=== PATIENT | male | born 1970 ===

== ENCOUNTER 2024-09-18 15:41 | Outpatient (AMB) | payer OTHER, SELFPAY ==
--- NOTE | 2024-09-18 15:42 | MHC.PC.OV ---
Vital Signs 09/18/24 15:43 09/18/24 16:36 Height 5 ft 7 in Weight 228 lb BMI 35.7 BP 152/78 H 148/84 H Blood Pressure Location Lt brachial Rt brachial Position Sitting Sitting Pulse 115 H Pulse Source Pulse Oximeter Pulse Oximetry (%) 96 Oxygen Delivery Method Room Air Intake Visit Reasons: shoulder pain when laying down Intake Note: Pt stated he cut his thumb open on metal at work today. He said it does not need stitches and he has cream&bandages at home to take care of it. 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 Accompanied by: Self / Same As Patient Allergies No Known Allergies Allergy (Verified 09/18/24 16:07) Medication List - Last Reconciled 09/18/24 by Salome Rivas PA-C metformin 500 mg PO BID sitagliptin phosphate (Januvia) 100 mg PO DAILY Tobacco use date assessed: 09/18/24 Dental Screening Dental Screen Date: 09/18/24 Did you have a dental visit in the last 12 months?: Yes Did you have a dental problem in the last 6 months where you did not have access to dental care?: No Was dental information given to patient?: Patient has dentist HPI shoulder pain when laying down HPI Details 54-year-old male coming to the office for the 1st time. Previously seen by PCP at [facility] and seen earlier this year. He has been off of his medications for the last 2 months. He does have a history of colonoscopy with the last 2 years was told he was cleared for 10 years. Per his report he has a history of liver disease and upper GI bleed. He does have an acute concerns today which is bilateral shoulder pain has been going on for several months. He does mentioned he does have a lot of repetitive work and sometimes involves heavy lifting. He evaluated for this concern and had an x-ray which he reports is normal. [facility] Surgical History History of appendectomy Family History Mother Pancreatic cancer Social History Housing: House Patient Tobacco Use Status: Never used Tobacco Tobacco use type: Cigarette e-Cigarette/Vaping Use: Never Used Second Hand Smoke Exposure: No service: No Current occupational status: employed Current occupational exposures/hazards: Yes Cognitive needs: No Hearing needs: No Vision needs: Yes Questionnaire PHQ-9 Over the last 2 weeks, how often have you been bothered by any of the following problems? 1. Little interest or pleasure in doing things: not at all 2. Feeling down, depressed, or hopeless: not at all 3. Trouble falling or staying asleep, or sleeping too much: not at all 4. Feeling tired or having little energy: not at all 5. Poor appetite or overeating: not at all 6. Feeling bad about yourself - or that you are a failure or have let yourself or your family down: not at all 7. Trouble concentrating on things, such as reading the newspaper or watching television: not at all 8. Moving or speaking so slowly that other people could have noticed. Or the opposite - being so fidgety or restless that you have been moving around a lot more than usual: not at all 9. Thoughts that you would be better off or of hurting yourself in some way: not at all Total score: 0 Depression Screening Interpretation: Negative Depression Screening Done: Yes 43795 - PHQ-9 Billing: Yes Source: Developed by Drs. Bryan Blanchard, Debby Canada, Víctor Mancini and colleagues, with an educational elizabeth from [employer]. Thrive Questionnaire Date Thrive assessed: 09/18/24 I am a: Patient What is your living situation today?: I have a steady place to live Within the past 12 months, did the food you bought not last and you didn't have the money to get more?: Never true Within the past 12 months, did you worry whether your food would run out before you got money to buy more?: Never true Do you have trouble paying for medicines?: No Do you have trouble getting transportation to medical appointments?: No Do you have trouble paying your heating and electricity bill?: No Do you have trouble taking care of your child, family member or friend?: No Do you have trouble with day-to-day activities such as bathing, preparing meals, shopping, managing finances, etc.?: No Are you currently unemployed and looking for a job?: No Are you interested in more education?: No Please select the resources that you would like help with: None Currently or been in a relationship where the following occur: No concerns reported THRIVE Score: 0 AUDIT C Alcohol Use Questionnaire (AUDIT-C) 1. How often do you have a drink containing alcohol?: Monthly or less 2. How many drinks containing alcohol do you have on a typical day when you are drinking?: 1 or 2 3. How often do you have six or more drinks on one occasion?: Never Total Score: 1 OSWALDO-7 AMB Questionnaire OSWALDO-7 Date OSWALDO - 7 assessed: 09/18/24 Feeling nervous, anxious, or on edge: 0 = Not at all Not being able to stop or control worryin = Not at all Worrying too much about different things: 0 = Not at all Trouble relaxin = Not at all Being so restless that it is hard to sit still: 0 = Not at all Becoming easily annoyed or irritable: 0 = Not at all Feeling afraid as if something awful might happen: 0 = Not at all Total OSWALDO-7 score (0-4 normal; 5-9 mild; 10-14 moderate; 15-21 severe): 0 Source: Developed by Drs. Bryan Blanchard, Debby Canada, Víctor Mancini and colleagues, with an educational elizabeth from [employer]. OSWALDO-7 Assessment Billing OSWALDO-7 Assessment Tool: OSWALDO-7 Assessment 64148 Review of Systems Const Denies body aches, Denies chills and Denies fever(s) Eyes Reports no additional complaints ENT Reports no additional complaints Card Denies chest pain, Denies syncope, Denies leg edema, Denies dyspnea and Denies dyspnea on exertion Resp Denies dyspnea and Denies dyspnea on exertion GI Denies abdominal pain, Denies nausea and Denies vomiting Musc Details: bilateral shoulder pain and limited ROM Skin/Breast Reports system reviewed and no additional complaints, except as documented Neuro Details: No numbness or tingling of bilateral upper extremities Reports no additional complaints and Denies syncope Physical exam (Primary Care) Vital Signs: Last Vital Signs Pulse 115 H 09/18/24 15:43 BP 148/84 H 09/18/24 16:36 Pulse Ox 96 09/18/24 15:43 Oxygen Delivery Method Room Air 09/18/24 15:43 BMI result Body Mass Index 35.7 BMI Assessment/Plan discussion: High BMI High, discussed plan: lifestyle, dietary and physical activity Tobacco/Smoking Status: Tobacco use Status Tobacco use date assessed 09/18/24 09/18/24 15:51 Patient Tobacco Use Status Never used Tobacco 09/18/24 15:51 Tobacco use type Cigarette 09/18/24 15:51 e-Cigarette/Vaping Use Never Used 09/18/24 15:51 PHQ-9: PHQ-9 Score PHQ-9: Total score 0 09/18/24 16:06 Depression Screening Interpretation: Negative Thrive Assessment: Date of Thrive Assessment Date Thrive assessed 09/18/24 09/18/24 15:51 Currently or been in a relationship where the following occur: No concerns reported Const General: cooperative, healthy appearing, comfortable and no acute distress Orientation/consciousness: patient oriented x3 HENMT Head: Yes normocephalic Ears: hearing grossly normal bilaterally General nose exam: Normal external nose present Eyes General: appearance normal, both eyes and all related structures Conjunctivae: conjunctivae normal Neck Neck: Yes full ROM and Yes no lymphadenopathy Resp Effort & Inspection: normal respiratory effort Auscultation: clear to auscultation bilaterally, no crackles, no rales, no rhonchi and no wheezes Cardio Rate: regular rate Rhythm: regular rhythm Skin General skin exam: no rashes or lesions noted Neuro General: patient oriented x3 Gait exam (Neuro): Normal gait present Extrem Other: No pain to palpation over bilateral shoulders or clavicle. No redness, swelling, warmth. Pain with internal rotation and limited range of motion with full extension of bilateral shoulders General: Yes normal to inspection, Yes full ROM and No edema Psych Affect: normal affect Attitude: cooperative Insight: Good insight present (Psych) Judgement: Good judgement present (Psych) Coding Level of Care Code New Pt Level 4 (96735) Diagnoses Diabetes mellitus E11.9 Shoulder pain M25.519 Elevated blood pressure reading without diagnosis of hypertension R03.0 Additional Codes OSWALDO-7 Assessment Billing - OSWALDO-7 Assessment Tool: OSWALDO-7 Assessment 39341 ([id number]) PHQ-9 - 02330 - PHQ-9 Billing: Yes ([id number]) Assessment & Plan Assessment & Plan (1) Diabetes mellitus: Code(s): E11.9 - Type 2 diabetes mellitus without complications Category: Medical Plan: Decrease the amount of carbohydrates such as pasta, bread, rice, and potatoes and limit the amount of sweets. Although fruits are generally healthy they should be eaten in moderation as they are still high in sugar. Hemoglobin A1c goal of less than 7%. Ordered for updated blood work and refilled Metformin. (2) Shoulder pain: Code(s): M25.519 - Pain in unspecified shoulder Category: Medical Plan: Patient having bilateral shoulder pain and limited range of motion. No pain to palpation on exam. Advised patient to undergo physical therapy and can consider orthopedics referral if pain worsens or does not improve. We will request the x-ray results from last primary care. (3) Elevated blood pressure reading without diagnosis of hypertension: Code(s): R03.0 - Elevated blood-pressure reading, without diagnosis of hypertension Category: Medical Plan: Not currently on blood pressure management and no history of hypertension diagnosed in the past. Avoid salt intake and encourage healthy diet and regular exercise. Advised patient to take blood pressure at home 2-3 times per week and follow up at next appointment. Plan This note was constructed using voice recognition software. While every effort has been made to ensure accuracy and scallop binder, still areas may have been included sometimes these areas may affect the content or meeting of the given symptoms. Total time spent caring for the patient today was 30 minutes. This includes time spent before the visit reviewing the chart, time spent during the visit, and time spent after the visit and documentation. Orders: Orders TSH reflex Free T4 09/18/24 Z00.00 - Encounter for general adult medical examination without abnormal findings PSA, Ultra Sensitive 09/18/24 Z. - Encounter for general adult medical examination without abnormal findings PT Evaluation and Treatment 09/18/24 M25.519 - Pain in unspecified shoulder Complete Blood Count Auto Diff 09/18/2400. - Encounter for general adult medical examination without abnormal findings Comprehensive Met. Panel 09/18/24. - Encounter for general adult medical examination without abnormal findings Free T4 (Free Thyroxine) 09/18/24 Z.00 - Encounter for general adult medical examination without abnormal findings Vitamin B12 and Folate 09/18/24 Z. - Encounter for general adult medical examination without abnormal findings Vitamin D 25-OH (D2 and D3) 09/18/24 Z. - Encounter for general adult medical examination without abnormal findings Microalbumin, Random (w Creat) 09/18/24 E11.9 - Type 2 diabetes mellitus without complications Hemoglobin A1c 09/18/24 E11.9 - Type 2 diabetes mellitus without complications Lipid Panel 09/18/24 Z00.00 - Encounter for general adult medical examination without abnormal findings UA CC w/rflx Micro + Cult 09/18/24 E11.9 - Type 2 diabetes mellitus without complications, R35.89 - Other polyuria Medications: New metformin 500 mg PO BID 60 tabs 2RF
[2024-09-18 15:43] VITALS: BP 152/78; PULSE 115; O2SAT 96; BMI 35.7
[2024-09-18 16:36] VITALS: BP 148/84
== END 2024-09-18 16:46 | disposition home or self-care (01) ==
DX: E11.9 Type 2 diabetes mellitus without complications (principal); M25.519 Pain in unspecified shoulder; R03.0 Elevated blood-pressure reading, without diagnosis of hypertension

== ENCOUNTER → 2024-09-18 15:41 | Outpatient (BNVA) | payer OTHER, SELFPAY | DX: M25.511 Pain in right shoulder (principal); M25.512 Pain in left shoulder; E11.9 Type 2 diabetes mellitus without complications; R03.0 Elevated blood-pressure reading, without diagnosis of hypertension | CPT/HCPCS: 96127 ==

== ENCOUNTER 2024-11-16 15:41 | Outpatient (RCR) | payer OTHER, SELFPAY ==
--- NOTE | 2025-01-17 09:47 | MHC.PT.DC ---
[facility] [place] Office [place] Office [place] Office [address] Artemio Elias [address] [phone] F: [phone] F: [phone] F: [phone] F: [phone] Physical Therapy Discharge Report Diagnosis: Pain in unspecified shoulder Shoulder pain, darren shoulder pain and stiffness Date of Surgery: n/a Date of Evaluation: 11/16/24 Date of Discharge: 01/17/25 Treatments to Date: 1 Cancellations to Date: 5 No Shows to Date: Discharge Status: Patient Elected to Stop Discharge Summary: Pt attended initial PT evaluation on 11/16/24. He cancelled all of his PT appointments due to being sick. He is being D/C from skilled PT as he has not attended or called to reschedule in > 30 days. Pt current level of function unknown at this time Electronically signed by: Allyson Franco, PT, DPT Please sign and return to therapist. Thank you for your referral.
== END 2025-01-17 09:46 | disposition home or self-care (01) ==
LOC: HO.PT 15:41
DX: M25.511 Pain in right shoulder (principal); M25.512 Pain in left shoulder
CPT/HCPCS: 97161

== ENCOUNTER 2024-11-20 15:29 | Outpatient (AMB) | payer OTHER, SELFPAY ==
--- NOTE | 2024-11-20 15:34 | A.OFFPC_ITS ---
Vital Signs 11/20/24 15:35 11/20/24 16:29 Height 5 ft 7 in Weight 234 lb BMI 36.6 BP 140/80 H 130/80 Blood Pressure Location Lt brachial Lt brachial Position Sitting Sitting Pulse 107 H Pulse Source Pulse Oximeter Pulse Oximetry (%) 97 Oxygen Delivery Method Room Air Intake Visit Reasons: Annual Exam Intake Note: Patient is here today for a physical. Appraisal Manager Required: No Toe Sewer: Not Required per policy Accompanied by: Self / Same As Patient Allergies No Known Allergies Allergy (Verified 11/20/24 15:35) Medication List - Last Reconciled 11/20/24 by Salome Rivas PA-C metformin 500 mg PO BID sitagliptin phosphate (Januvia) 100 mg PO DAILY Tobacco use date assessed: 11/20/24 Dental Screening Dental Screen Date: 11/20/24 Did you have a dental visit in the last 12 months?: Yes Did you have a dental problem in the last 6 months where you did not have access to dental care?: No Was dental information given to patient?: Patient has dentist HPI Annual Exam HPI Details 54-year-old male with past medical histo ry of diabetes mellitus and elevated blood pressure last seen 08/2024 coming in for annual exam. Patient tells us today he has been taking his medications but has been eating poorly at home. He has been eating foods high in sugars and carbs. He did see PT for his shoulder pain but was only able to attend one visit prior to this appointment due to limited appointment availability. He states he is up to date on his colonoscopy but we are still awaiting records from his last PCP. He had his tetanus vaccine last year after a laceration to the finger. Declining flu shot today. [facility] Surgical History History of appendectomy Family History Mother Pancreatic cancer Social History Housing: House Alcohol intake: never Patient Tobacco Use Status: Never used Tobacco Tobacco use type: Cigarette e-Cigarette/Vaping Use: Never Used Second Hand Smoke Exposure: No service: No Current occupational status: employed Current occupational exposures/hazards: Yes Cognitive needs: No Hearing needs: No Vision needs: Yes (Glasses) Questionnaire PHQ-9 Over the last 2 weeks, how often have you been bothered by any of the following problems? 1. Little interest or pleasure in doing things: not at all 2. Feeling down, depressed, or hopeless: not at all 3. Trouble falling or staying asleep, or sleeping too much: not at all 4. Feeling tired or having little energy: not at all 5. Poor appetite or overeating: not at all 6. Feeling bad about yourself - or that you are a failure or have let yourself or your family down: not at all 7. Trouble concentrating on things, such as reading the newspaper or watching television: not at all 8. Moving or speaking so slowly that other people could have noticed. Or the opposite - being so fidgety or restless that you have been moving around a lot more than usual: not at all 9. Thoughts that you would be better off or of hurting yourself in some way: not at all Total score: 0 Depression Screening Interpretation: Negative Depression Screening Done: Yes Source: Developed by Drs. Bryan Blanchard, Debby Canada, Víctor Mancini and colleagues, with an educational elizabeth from [employer]. Thrive Questionnaire Date Thrive assessed: 11/20/24 I am a: Patient What is your living situation today?: I have a steady place to live Within the past 12 months, did the food you bought not last and you didn't have the money to get more?: Never true Within the past 12 months, did you worry whether your food would run out before you got money to buy more?: Never true Do you have trouble paying for medicines?: No Do you have trouble getting transportation to medical appointments?: No Do you have trouble paying your heating and electricity bill?: No Do you have trouble taking care of your child, family member or friend?: No Do you have trouble with day-to-day activities such as bathing, preparing meals, shopping, managing finances, etc.?: No Are you currently unemployed and looking for a job?: No Are you interested in more education?: No Please select the resources that you would like help with: None Currently or been in a relationship where the following occur: No concerns reported THRIVE Score: 0 AUDIT C Alcohol Use Questionnaire (AUDIT-C) 1. How often do you have a drink containing alcohol?: Never Total Score: 0 OSWALDO-7 AMB Questionnaire OSWALDO-7 Date OSWALDO - 7 assessed: 11/20/24 Feeling nervous, anxious, or on edge: 0 = Not at all Not being able to stop or control worryin = Not at all Worrying too much about different things: 0 = Not at all Trouble relaxin = Not at all Being so restless that it is hard to sit still: 0 = Not at all Becoming easily annoyed or irritable: 0 = Not at all Feeling afraid as if something awful might happen: 0 = Not at all Total OSWALDO-7 score (0-4 normal; 5-9 mild; 10-14 moderate; 15-21 severe): 0 Source: Developed by Drs. Bryan Blanchard, Debby Canada, Víctor Mancini and colleagues, with an educational elizabeth from [employer]. Review of Systems Const Denies body aches, Denies fatigue, Denies fever(s), Denies frequent falls, Denies headache(s) and Denies weakness Eyes Reports no additional complaints and Denies change in vision ENT Denies dysphagia, Denies dizziness, Denies facial pain, Denies headache(s), Denies nasal congestion and Denies odynophagia Card Denies chest pain, Denies syncope, Denies irregular heart rhythm, Denies leg edema, Denies lightheadedness and Denies dyspnea Resp Denies cough and Denies dyspnea GI Denies constipation, Denies dysphagia, Denies dyspepsia, Denies diarrhea, Denies nausea, Denies odynophagia and Denies vomiting Denies dysuria, Denies urinary frequency, Denies urinary hesitancy and Denies urinary urgency Musc Denies back pain and Denies myalgias Skin/Breast Reports system reviewed and no additional complaints, except as documented Neuro Denies dizziness, Denies syncope, Denies frequent falls, Denies headache(s) and Denies weakness Psych Reports no additional complaints Endo Denies fatigue Physical exam (Primary Care) Vital Signs: Last Vital Signs Pulse 107 H 11/20/24 15:35 BP 130/80 11/20/24 16:29 Pulse Ox 97 11/20/24 15:35 Oxygen Delivery Method Room Air 11/20/24 15:35 BMI result Body Mass Index 36.6 Tobacco/Smoking Status: Tobacco use Status Tobacco use date assessed 11/20/24 11/20/24 15:46 Patient Tobacco Use Status Never used Tobacco 11/20/24 15:46 Tobacco use type Cigarette 11/20/24 15:46 e-Cigarette/Vaping Use Never Used 11/20/24 15:46 PHQ-9: PHQ-9 Score PHQ-9: Total score 0 11/20/24 15:56 Depression Screening Interpretation: Negative Thrive Assessment: Date of Thrive Assessment Date Thrive assessed 11/20/24 11/20/24 15:46 Currently or been in a relationship where the following occur: No concerns reported Const General: cooperative, healthy appearing, comfortable and no acute distress Orientation/consciousness: patient oriented x3 HENMT Head: Yes normocephalic Ears: hearing grossly normal bilaterally, external ears normal, TM's normal bilaterally and EAC's normal General nose exam: Normal external nose present Face and sinus: Yes normal facial exam and Yes sinuses nontender Mouth: Normal oral and palatal mucosa present and tongue normal Throat: Yes posterior oropharynx normal Eyes General: appearance normal, both eyes and all related structures Conjunctivae: conjunctivae normal Pupils: Equal, round and reactive pupils present EOM: EOMs intact bilaterally and No Nystagmus present Neck Neck: Yes normal visual inspection, Yes full ROM and Yes no lymphadenopathy Chest Chest palpation & inspection: normal inspection of the chest Resp Effort & Inspection: normal respiratory effort Auscultation: clear to auscultation bilaterally, no crackles, no rales, no rhonchi, no wheezes and breath sounds present Cardio Rate: regular rate Rhythm: regular rhythm Peripheral pulses: radial pulses present and dorsalis pedis present GI Inspection: Yes normal to inspection and No Abdominal wall edema Palpation (GI): Soft to palpation, not firm and nontender Auscultation: normal bowel sounds Rectal Exam - Male: Yes deferred General: Yes no CVA tenderness Back/Spine/Pelvis Back: no CVA tenderness Skin General skin exam: no rashes or lesions noted Neuro General: patient oriented x3 Cranial nerves: Yes Equal, round and reactive pupils present, Yes Midline tongue present, Yes Ability to bilaterally elevate shoulders present and No Nystagmus present Gait exam (Neuro): Normal gait present Extrem General: Yes normal to inspection, Yes full ROM, No no pedal edema and No edema Psych Speech and movement: Normal speech and movement present Affect: normal affect Insight: Good insight present (Psych) Judgement: Good judgement present (Psych) Results AMB Hemoglobin A1c AMB Hemoglobin A1c 10.4 % Last Edit by DARIA Calderon on 11/20/24 15:5 0 Results Reviewed Results Reviewed: Laboratory Last Values Hgb A1c (Clinic) 10.4 % (4.0-6.0) H 11/20/24 15:34 Coding Level of Care Code Est Pt Prev Care 40-64y(67445) Diagnoses Tachycardia R00.0 Elevated blood pressure reading without diagnosis of hypertension R03.0 Shoulder pain M25.519 Diabetes mellitus E11.9 Obesity (BMI 30-39.9) E66.9 Annual physical exam Z00.00 Assessment & Plan Assessment & Plan (1) Tachycardia: Code(s): R00.0 - Tachycardia, unspecified Category: Medical Plan: Patient tachycardic on exam denies any symptoms of chest pain, lightheadedness or dizziness. Ordered for EKG for further evaluation. (2) Elevated blood pressure reading without diagnosis of hypertension: Code(s): R03.0 - Elevated blood-pressure reading, without diagnosis of hypertension Category: Medical Plan: Blood pressure mildly elevated decreased when retaken 130/80. Avoid salt intake and encourage healthy diet and regular exercise. Advised patient to take blood pressure at home and blood pressure cuff sent to [facility]. (3) Shoulder pain: Code(s): M25.519 - Pain in unspecified shoulder Category: Medical Plan: Continue with physical therapy and can consider referral to orthopedics if no improvement. (4) Diabetes mellitus: Code(s): E11.9 - Type 2 diabetes mellitus without complications Category: Medical Plan: Decrease the amount of carbohydrates such as pasta, bread, rice, and potatoes and limit the amount of sweets. Although fruits are generally healthy they fani uld be eaten in moderation as they are still high in sugar. Hemoglobin A1c goal of of less than 7%. A1c elevated today 10.4%. Strongly advised against dietary and lifestyle modification. Patient declining insulin and GLP 1 injections although they are strongly recommended based on the elevated A1c. We will try adding Jardiance to medication regimen and follow up in 3 months. (5) Obesity (BMI 30-39.9): Code(s): E66.9 - Obesity, unspecified Category: Medical Plan: Healthy diet and regular exercise is encouraged. (6) Annual physical exam: Code(s): Z00.00 - Encounter for general adult medical examination without abnormal findings Category: Medical Plan: Patient is up-to-date on all recommended routine screenings and vaccinations for his age. Reminded patient about blood work as it has not been completed since last visit. Tetanus vaccine up to date and declining flu shot today. Waiting on records from last PCP. Plan This note was constructed using voice recognition software. While every effort has been made to ensure accuracy and residence life coordinator, still areas may have been included sometimes these areas may affect the content or meeting of the given symptoms. Total time spent caring for the patient today was 30 minutes. This i ncludes time spent before the visit reviewing the chart, time spent during the visit, and time spent after the visit and documentation. Orders: Orders ECG 12 lead EKG 11/20/24 R00.0 - Tachycardia, unspecified AMB Hemoglobin A1c 11/20/24 E11.9 - Type 2 diabetes mellitus without complications Medications: New sitagliptin phosphate (Januvia) 100 mg PO DAILY 90 tabs 3RF empagliflozin (Jardiance) 10 mg PO DAILY 90 tabs 0RF Refilled metformin 500 mg PO BID 180 tabs 2RF
[2024-11-20 15:35] VITALS: BP 140/80; PULSE 107; O2SAT 97; BMI 36.6
[2024-11-20 16:29] VITALS: BP 130/80
== END 2024-11-20 16:40 | disposition home or self-care (01) ==
DX: E11.9 Type 2 diabetes mellitus without complications (principal)

== ENCOUNTER → 2024-11-20 15:29 | Outpatient (BNVA) | payer OTHER, SELFPAY | DX: Z00.00 Encounter for general adult medical examination without abnormal findings (principal); R00.0 Tachycardia, unspecified; R03.0 Elevated blood-pressure reading, without diagnosis of hypertension; M25.519 Pain in unspecified shoulder; E11.9 Type 2 diabetes mellitus without complications; E66.9 Obesity, unspecified; Z68.36 Body mass index [BMI] 36.0-36.9, adult | CPT/HCPCS: 83036; 96127 ==

== ENCOUNTER 2025-02-19 15:44 | Outpatient (AMB) | payer OTHER, SELFPAY ==
--- NOTE | 2025-02-19 15:55 | A.OFFPC_ITS ---
Vital Signs 02/19/25 15:56 02/19/25 16:19 Height 5 ft 7 in Weight 222 lb 8 oz BMI 34.8 BP 142/84 H 128/72 Blood Pressure Location Lt brachial Lt brachial Position Sitting Sitting Pulse 111 H 100 Pulse Source Pulse Oximeter Temp 97.5 F Temp Source Temporal Artery Scan Pulse Oximetry (%) 94 Oxygen Delivery Method Room Air Intake Visit Reasons: f/u DM and HTN Intake Note: Patient is here to follow up on DM, HTN. Dependency Case Manager Required: No Facilities Maintenance Engineer: Not Required per policy Accompanied by: Self / Same As Patient Allergies No Known Allergies Allergy (Verified 02/19/25 16:03) Medication List - Last Reconciled 02/19/25 by Salome Rivas PA-C empagliflozin (Jardiance) 10 mg PO DAILY metformin 500 mg PO BID sitagliptin phosphate (Januvia) 100 mg PO DAILY Tobacco use date assessed: 02/19/25 Dental Screening Dental Screen Date: 11/20/24 HPI f/u DM and HTN HPI Details 54-year-old male with past medical histo ry of diabetes mellitus, elevated blood pressure, obesity and elevated LFTs last seen 11/2024 coming in for follow up. Presenting with work-related stress and depression. He is dissatisfied with his job, leading to significant stress, impacting sleep and mood. Reports interpersonal difficulties at home, primarily due to partner's snoring and disagreements about diet. Experienced a 12-pound weight loss, unintentional, over the winter months without formal exercise due to time constraints. His diabetes management has improved significantly from an A1c of 10.4 to 7.2, yet remains above the optimal level. Awaits investigation for sleep patterns, discontinuation of previous CPAP therapy post weight loss without reassessment of need. Reports fatigue and elevated heart rate primarily attributed to stress, lacking awareness of any potential underlying arrhythmia. PFSH Surgical History History of appendectomy Family History Mother Pancreatic cancer Social History Housing: House Alcohol intake: never Patient Tobacco Use Status: Never used Tobacco Tobacco use type: Cigarette e-Cigarette/Vaping Use: Never Used Second Hand Smoke Exposure: No service: No Current occupational status: employed Current occupational exposures/hazards: Yes Cognitive needs: No Hearing needs: No Vision needs: Yes (Glasses) Questionnaire Thrive Questionnaire Date Thrive assessed: 11/20/24 OSWALDO-7 AMB Questionnaire OSWALDO-7 Date OSWALDO - 7 assessed: 11/20/24 Source: Developed by Drs. Bryan Blanchard, Debby Canada, Víctor Mancini and colleagues, with an educational elizabeth from [employer]. Review of Systems Const Denies body aches, Denies chills, Denies fever(s), Denies headache(s) and Denies poor appetite Eyes Reports no additional complaints ENT Denies dysphagia, Denies dizziness, Denies headache(s) and Denies odynophagia Card Denies chest pain, Denies syncope, Denies edema, Denies irregular heart rhythm, Denies lightheadedness and Denies dyspnea Resp Denies cough and Denies dyspnea GI Denies abdominal pain, Denies constipation, Denies dysphagia, Denies diarrhea, Denies nausea, Denies odynophagia and Denies vomiting Reports no additional complaints Musc Reports no additional complaints and Denies abnormal gait Skin/Breast Reports system reviewed and no additional complaints, except as documented Neuro Denies abnormal gait, Denies dizziness, Denies syncope and Denies headache(s) Psych Reports no additional complaints Physical exam (Primary Care) Vital Signs: Last Vital Signs Temp 97.5 F 02/19/25 15:56 Pulse 111 H 02/19/25 15:56 BP 142/84 H 02/19/25 15:56 Pulse Ox 94 02/19/25 15:56 Oxygen Delivery Method Room Air 02/19/25 15:56 BMI result Body Mass Index 34.8 Tobacco/Smoking Status: Tobacco use Status Tobacco use date assessed 11/20/24 11/20/24 15:46 Patient Tobacco Use Status Never used Tobacco 11/20/24 15:46 Tobacco use type Cigarette 11/20/24 15:46 e-Cigarette/Vaping Use Never Used 11/20/24 15:46 Thrive Assessment: Date of Thrive Assessment Date Thrive assessed 11/20/24 11/20/24 15:46 Const General: cooperative, healthy appearing, comfortable and no acute distress Orientation/consciousness: patient oriented x3 HENMT Head: Yes normocephalic Ears: hearing grossly normal bilaterally General nose exam: Normal external nose present Eyes General: appearance normal, both eyes and all related structures Conjunctivae: conjunctivae normal Neck Neck: Yes full ROM and Yes no lymphadenopathy Resp Effort & Inspection: normal respiratory effort Auscultation: clear to auscultation bilaterally, no crackles, no rales, no rhonchi and no wheezes Cardio Rate: regular rate Rhythm: regular rhythm Skin General skin exam: no rashes or lesions noted Neuro General: patient oriented x3 Gait exam (Neuro): Normal gait present Extrem General: Yes normal to inspection, Yes full ROM and No edema Psych Affect: normal affect Attitude: cooperative Insight: Good insight present (Psych) Judgement: Good judgement present (Psych) Results AMB Hemoglobin A1c AMB Hemoglobin A1c 7.2 % Last Edit by DARIA Calderon on 02/19/25 16:09 Coding Level of Care Code Est Pt Level 4 (32928) Diagnoses Diabetes mellitus E11.9 Elevated blood pressure reading without diagnosis of hypertension R03.0 Tachycardia R00.0 Obesity (BMI 30-39.9) E66.9 Hypersomnolence G47.10 Stress disorder, acute F43.0 Assessment & Plan Assessment & Plan (1) Diabetes mellitus: Code(s): E11.9 - Type 2 diabetes mellitus without complications Category: Medical Plan: Decrease the amount of carbohydrates such as pasta, bread, rice, and potatoes and limit the amount of sweets. Although fruits are generally healthy they should be eaten in moderation as they are still high in sugar. Hemoglobin A1c goal of less than 7%. A1c 7.2% today continue on current medication regimen at this time and continue to work on diet and exercise. If A1c remains elevated plan to increase Jardiance to 25mg. (2) Elevated blood pressure reading without diagnosis of hypertension: Code(s): R03.0 - Elevated blood-pressure reading, without diagnosis of hypertension Category: Medical Plan: Avoid salt intake and encourage healthy diet and regular exercise. Blood pressure normal on exam today. (3) Tachycardia: Code(s): R00.0 - Tachycardia, unspecified Category: Medical Plan: Reminded patient about EKG agreed to have it done on Wednesday. Patient is currently asymptomatic at this time (4) Obesity (BMI 30-39.9): Code(s): E66.9 - Obesity, unspecified Category: Medical Plan: Healthy diet and regular exercise is encouraged. Noted 12 lb weight loss since last visit. (5) Hypersomnolence: Code(s): G47.10 - Hypersomnia, unspecified Category: Medical Plan: Patient has previous history of sleep apnea but has not been tested since he had significant weight loss. ORdered for home sleep study test for further evaluation. (6) Stress disorder, acute: Code(s): F43.0 - Acute stress reaction Category: Medical Plan: Patient endorsing high amounts of stress due to home and work life. Denies any thoughts of self-harm and agrees to reach out if this changes. Declines referral to counseling or medical management at this time. Plan Management of the patient's diabetes will continue with the current Jardiance dosage, and we will re-evaluate after three months. A diet plan to reduce carbohydrate intake with enhanced portion control was discussed to aid in glycemic control and the patient's weight loss goals. The patient continues to decline psychiatric interventions; however, the sleep study is set to evaluate obstructive sleep apnea. We will monitor the fast heart rate through an EKG, and address any abnormalities found. Recommended abdominal and kidney ultrasonography will further check liver functionality and exclude incidental findings. Stress management measures, including monitoring blood pressure and weight, are noted as preventive discussions. This note was constructed using voice recognition software. While every effort has been made to ensure accuracy and liquid sugar fortifier, still areas may have been included sometimes these areas may affect the content or meeting of the given symptoms. Total time spent caring for the patient today was 20 minutes. This includes time spent before the visit reviewing the chart, time spent during the visit, and time spent after the visit and documentation. Patient was informed and verbally consented to the use of an ambient scribe for clinic note documentation during this visit. Orders: Orders AMB Hemoglobin A1c Today E11.9 - Type 2 diabetes mellitus without complications RT home sleep study Today E66.9 - Obesity, unspecified, G47.10 - Hypersomnia, unspecified Medications: Refilled empagliflozin (Jardiance) 10 mg PO DAILY 90 tabs 2RF
[2025-02-19 15:56] VITALS: BP 142/84; PULSE 111; TEMP 36.4; O2SAT 94; BMI 34.8
[2025-02-19 16:19] VITALS: BP 128/72; PULSE 100
--- OUTSIDE RECORDS SUMMARY | 2025-02-19 18:06 | XMS_ITS ---
Author Name [facility] Organization Unknown Encounters Encounter Type Encounter Reason Primary Diagnosis Location Date Emergency RIGHT HAND LACERATION RIGHT HAND LACERATION [facility] 02/17/2024 Care Team Organization Name Specialty Phone Email Start Date End Da [facility] provided,No Primary Care 02/17/2024 06/11/2024 [facility] No provided Primary Care 02/17/2024 [facility] 02/17/2024
== END 2025-02-19 16:46 | disposition home or self-care (01) ==
LOC: HO.HMCH 15:44
DX: E11.9 Type 2 diabetes mellitus without complications (principal); R03.0 Elevated blood-pressure reading, without diagnosis of hypertension; Z68.34 Body mass index [BMI] 34.0-34.9, adult; E66.9 Obesity, unspecified; R00.0 Tachycardia, unspecified; G47.10 Hypersomnia, unspecified; F43.0 Acute stress reaction

== ENCOUNTER → 2025-02-19 15:44 | Outpatient (BNVA) | payer OTHER, SELFPAY | DX: E11.9 Type 2 diabetes mellitus without complications (principal); R03.0 Elevated blood-pressure reading, without diagnosis of hypertension; R00.0 Tachycardia, unspecified; E66.9 Obesity, unspecified; G47.10 Hypersomnia, unspecified; F43.0 Acute stress reaction | CPT/HCPCS: 83036 ==

== ENCOUNTER 2025-02-23 10:41 | Outpatient (REF) | payer OTHER, SELFPAY ==
[2025-02-23 11:40] LABS: Appearance Urine Clear; Color Urine Yellow; Glucose Urine UA >=1000 mg/dL (Negative); Leukocyte Esterase Urine Negative (Negative); Nitrite Urine Negative (Negative); PH 6.5 (5.0-9.0); Specific Gravity - Urine >= 1.030 (1.005-1.025); UMIC TRIGGER UACC YES; Urine Blood Small (1+) (Negative); Urine Ketones Negative (Negative); Urine Protein Negative (Neg-Trace)
[2025-02-23 11:43] LABS: Bacteria Urine None Seen (None Seen); Hyaline Casts Urine 0-2 /LPF (0-2); Squamous Epithelial Cell Urine 0-2 /HPF (0-2); WBC Urine 0-5 /HPF (0-5)
[2025-02-24 08:21] LABS: HBc Num1 0.07 S/CO (0.00-0.79); Hepatitis B Core Antibody Nonreactive (Nonreactive); Hepatitis B Surface Antigen Negative (Negative); ~HepC Num1 0.17 S/CO (0.00-0.79); ~Hepatitis B Surface Antibody NONREACTIVE (Nonreactive); ~Hepatitis C Antibody Nonreactive (Nonreactive)
== END 2025-02-23 10:42 | disposition home or self-care (01) ==
LOC: HO.LAB 10:41
DX: R79.89 Other specified abnormal findings of blood chemistry (principal)
CPT/HCPCS: 36415; 81001; 86704; 86706; 86803; 87340

== ENCOUNTER 2025-10-24 15:02 | Outpatient (AMB) | payer OTHER, SELFPAY ==
[2025-10-24 15:11] VITALS: BP 138/72; PULSE 102; RESP 18; O2SAT 95; BMI 36.1
--- NOTE | 2025-10-24 15:11 | A.OFFPC_ITS ---
Vital Signs 10/24/25 15:11 Height 5 ft 7 in Weight 230 lb 4 oz BMI 36.1 BP 138/72 Blood Pressure Location Lt brachial Position Sitting Respiration 18 Pulse 102 H Pulse Source Pulse Oximeter Temp Source Temporal Artery Scan Pulse Oximetry (%) 95 Oxygen Delivery Method Room Air Intake Visit Reasons: BMI check in [employer] Saw Operator Required: No Allergies No Known Allergies Allergy (Verified 10/24/25 15:35) Medication List - Last Reconciled 10/24/25 by Salome Rivas PA-C empagliflozin (Jardiance) 10 mg PO DAILY metformin 500 mg PO BID sitagliptin phosphate (Januvia) 100 mg PO DAILY Tobacco use date assessed: 10/24/25 Dental Screening Dental Screen Date: 10/24/25 Did you have a dental visit in the last 12 months?: No Did you have a dental problem in the last 6 months where you did not have access to dental care?: No Was dental information given to patient?: No HPI BMI check in HPI Details 55-year-old male with past medical histo ry of diabetes mellitus, elevated blood pressure, obesity and elevated LFTs last seen 02/2025 coming in for follow up. Presenting for chronic disease management. He reports significant stress related to his work, home life, and family, including challenges with his sons and partner. He has gained 10 pounds since his last visit, with his weight increasing from 220 to 230 pounds, which he attributes to stress and poor eating habits. Regarding his diabetes, his initial A1c was 10.4, which had improved previously, but he is concerned it has worsened. He has a diagnosis of mild cirrhosis and has missed a GI follow-up appointment. He reports he does not drink alcohol consistently, having a beer occasionally about once a month, and takes ibuprofen for aches and pains. He has a history of missed appointments, including a sleep study, though he feels he is sleeping fine. [facility] Surgical History History of appendectomy Family History Mother Pancreatic cancer Social History Housing: House Alcohol intake: never Patient Tobacco Use Status: Never used Tobacco Tobacco use type: Cigarette e-Cigarette/Vaping Use: Never Used Second Hand Smoke Exposure: No service: No Current occupational status: employed Current occupational exposures/hazards: Yes Cognitive needs: No Hearing needs: No Vision needs: Yes (Glasses) Questionnaire Thrive Questionnaire Date Thrive assessed: 10/24/25 What is your living situation today?: I have a steady place to live Within the past 12 months, did the food you bought not last and you didn't have the money to get more?: Never true Within the past 12 months, did you worry whether your food would run out before you got money to buy more?: Never true Do you have trouble paying for medicines?: No Do you have trouble getting transportation to medical appointments?: No Do you have trouble paying your heating and electricity bill?: No Do you have trouble taking care of your child, family member or friend?: No Do you have trouble with day-to-day activities such as bathing, preparing meals, shopping, managing finances, etc.?: No Are you currently unemployed and looking for a job?: No Are you interested in more education?: No Please select the resources that you would like help with: None Currently or been in a relationship where the following occur: No concerns reported THRIVE Score: 0 OSWALDO-7 AMB Questionnaire OSWALDO-7 Date OSWALDO - 7 assessed: 11/20/24 Source: Developed by Drs. Bryan Blanchard, Debby Canada, Víctor Mancini and colleagues, with an educational elizabeth from [employer]. Review of Systems Const Denies body aches, Denies chills, Denies fever(s), Denies headache(s) and Denies poor appetite Eyes Reports no additional complaints ENT Denies dizziness and Denies headache(s) Card Denies chest pain, Denies lightheadedness and Denies dyspnea Resp Denies dyspnea GI Denies abdominal pain, Denies nausea and Denies vomiting Reports no additional complaints Musc Reports no additional complaints and Denies abnormal gait Skin/Breast Reports system reviewed and no additional complaints, except as documented Neuro Denies abnormal gait, Denies dizziness and Denies headache(s) Psych Reports no additional complaints Physical exam (Primary Care) Vital Signs: Last Vital Signs Pulse 102 H 10/24/25 15:11 Resp 18 10/24/25 15:11 BP 138/72 10/24/25 15:11 Pulse Ox 95 10/24/25 15:11 Oxygen Delivery Method Room Air 10/24/25 15:11 BMI result Body Mass Index 36.1 Tobacco/Smoking Status: Tobacco use Status Tobacco use date assessed 10/24/25 10/24/25 15:17 Patient Tobacco Use Status Never used Tobacco 10/24/25 15:17 Tobacco use type Cigarette 10/24/25 15:17 e-Cigarette/Vaping Use Never Used 10/24/25 15:17 Thrive Assessment: Date of Thrive Assessment Date Thrive assessed 10/24/25 10/24/25 15:17 Currently or been in a relationship where the following occur: No concerns reported Forms completed: MOLST Time spent: 1-15 minutes, not on file Actual minutes spent: 15 Const General: cooperative, healthy appearing, comfortable and no acute distress Orientation/consciousness: patient oriented x3 HENMT Head: Yes normocephalic Ears: hearing grossly normal bilaterally General nose exam: Normal external nose present Eyes General: appearance normal, both eyes and all related structures Conjunctivae: conjunctivae normal Neck Neck: Yes full ROM and Yes no lymphadenopathy Resp Effort & Inspection: normal respiratory effort Auscultation: clear to auscultation bilaterally, no crackles, no rales, no rhonchi and no wheezes Cardio Rate: regular rate Rhythm: regular rhythm Skin General skin exam: no rashes or lesions noted Neuro General: patient oriented x3 Gait exam (Neuro): Normal gait present Extrem General: Yes normal to inspection, Yes full ROM and No edema Psych Affect: normal affect Attitude: cooperative Insight: Good insight present (Psych) Judgement: Good judgement present (Psych) Results AMB Hemoglobin A1c AMB Hemoglobin A1c 7.9 % Last Edit by Gladis Perez MA on 10/24/25 16:05 Results Reviewed Results Reviewed: Laboratory Last Values Hgb A1c (Clinic) 7.9 % (4.0-6.0) H 10/24/25 15:38 Coding Level of Care Code Est Pt Level 4 (57139) Diagnoses Diabetes mellitus E11.9 Elevated blood pressure reading without diagnosis of hypertension R03.0 Tachycardia R00.0 Obesity (BMI 30-39.9) E66.9 Hypersomnolence G47.10 Cirrhosis K74.60 Advanced directives, counseling/discussion Z71.89 Additional Codes Vital Signs *Quality* - Time spent: 1-15 minutes, not on file ([id number]) Assessment & Plan Assessment & Plan (1) Diabetes mellitus: Code(s): E11.9 - Type 2 diabetes mellitus without complications Category: Medical Plan: Decrease the amount of carbohydrates such as pasta, bread, rice, and potatoes and limit the amount of sweets. Although fruits are generally healthy they should be eaten in moderation as they are still high in sugar. Hemoglobin A1c goal of less than 7%. The patient's Hemoglobin A1c is elevated at 7.9, up from a previously well- controlled level. He is currently taking Januvia, Jardiance, and metformin. Given the elevated A1c and associated weight gain, a trial of Ozempic was discussed, which would necessitate discontinuing Januvia as they are in the same medication class. A prescription for Ozempic will be sent to the pharmacy to determine insurance coverage. If Ozempic is covered, the patient will stop Januvia and begin Ozempic. If it is not covered, he will continue his current medications, and the dose of Jardiance will be increased. (2) Elevated blood pressure reading without diagnosis of hypertension: Code(s): R03.0 - Elevated blood-pressure reading, without diagnosis of hypertension Category: Medical Plan: Avoid salt intake and encourage healthy diet and regular exercise. Blood pressure normal on exam today. (3) Tachycardia: Code(s): R00.0 - Tachycardia, unspecified Category: Medical Plan: Updated order for EKG to be completed by patient. (4) Obesity (BMI 30-39.9): Code(s): E66.9 - Obesity, unspecified Category: Medical Plan: Healthy diet and regular exercise is encouraged. Noted 8 lb weight gain since last visit. (5) Hypersomnolence: Code(s): G47.10 - Hypersomnia, unspecified Category: Medical Plan: Patient has previous history of sleep apnea but has not been tested since he had significant weight loss. Patient missed sleep study appointment advised to reschedule but patient declines today. (6) Cirrhosis: Comment: Liver elastography 02/2023 with stiffness value 19.1 consistent with cirrhotic morphology Code(s): K74.60 - Unspecified cirrhosis of liver Category: Medical Plan: The patient has a known diagnosis of mild cirrhosis and has missed a follow-up appointment with gastroenterology. The patient was counseled that while cirrhosis is not curable, its progression can be prevented through lifestyle modifications including healthy eating, weight loss, and avoidance of alcohol and excess Tylenol. Repeat blood work has been ordered to assess liver function. The patient will be encouraged to re-engage with a promotor group ticket sales for continued monitoring. (7) Advanced directives, counseling/discussion: Code(s): Z71.89 - Other specified counseling Category: Medical Plan: In light of the patient's significant psychosocial stress and expressed wishes, an extensive discussion about advance directives was conducted. The patient completed and signed a MOLST form during the visit. His directives include do not resuscitate (DNR), do not intubate (DNI), and refusal of non-invasive ventilation, dialysis, and artificial nutrition. He consented to hospital transfer and short-term artificial hydration. We had an in depth discussion about what each selection means and that the chance of survival without CPR during cardiac arrest are extremely low. Patient understands what he is signing. In light of the psychosocial stress he has been under I did offer counseling and medication management for his depression and anxiety which was adamantly declined by the patient. He does understand what he is signing this is reviewed several times before signing the paper. Patient was also advised that MOLST form may be revised at any time. The patient was instructed to provide a copy of the MOLST form at checkout to be added to his medical file. He was also counseled on keeping copies of the form at home and work, and the option of obtaining a DNR bracelet. Plan This note was constructed using voice recognition software. 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 Total time spent caring for the patient today was 40 minutes. This includes time spent before the visit reviewing the chart, time spent during the visit, and time spent after the visit and documentation. Patient was informed and verbally consented to the use of an ambient scribe for clinic note documentation during this visit. Orders: Orders ECG 12 lead EKG Today R00.0 - Tachycardia, unspecified TSH reflex Free T4 Today Z13.29 - Encounter for screening for other suspected endocrine disorder UA CC w/rflx Micro + Cult Today R31.9 - Hematuria, unspecified, Z13.9 - Encounter for screening, unspecified Vitamin B12 and Folate Today Z13.21 - Encounter for screening for nutritional disorder Vitamin D 25-OH Total Today Z13.21 - Encounter for screening for nutritional disorder AMB Hemoglobin A1c Today Z13.9 - Encounter for screening, unspecified Lipid Panel Today E78.00 - Pure hypercholesterolemia, unspecified Complete Blood Count Auto Diff Today K74.60 - Unspecified cirrhosis of liver, Z13.0 - Encounter for screening for diseases of the blood and blood-forming organs and certain disorders involving the immune mechanism Comprehensive Met. Panel Today K74.60 - Unspecified cirrhosis of liver, Z00.00 - Encounter for general adult medical examination without abnormal findings Medications: New semaglutide (Ozempic) for 4 weeks 0.25 mg (0.368 mL) subcut QWEEK 3 mL 0RF E11.9 - Type 2 diabetes mellitus without complications, E66.9 - Obesity, unspecified, K74.60 - Unspecified cirrhosis of liver Refilled metformin 500 mg PO BID 180 tabs 2RF On Hold sitagliptin phosphate (Januvia) Hold Comment: Doctor's Order 100 mg PO DAILY 90 tabs 3RF
--- OUTSIDE RECORDS SUMMARY | 2025-10-24 20:01 | XMS_ITS ---
Author Name [facility] Organization Unknown Encounters Encounter Type Encounter Reason Primary Diagnosis Location Date Emergency RIGHT HAND LACERATION RIGHT HAND LACERATION [facility] 02/17/2024 Care Team Organization Name Specialty Phone Email Start Date End Da [facility] provided,No Primary Care 02/17/2024 06/11/2024 [facility] No provided Primary Care 02/17/2024 [facility] 02/17/2024
== END 2025-10-24 16:19 | disposition home or self-care (01) ==
DX: E11.9 Type 2 diabetes mellitus without complications (principal); K74.60 Unspecified cirrhosis of liver; R03.0 Elevated blood-pressure reading, without diagnosis of hypertension; R00.0 Tachycardia, unspecified; E66.9 Obesity, unspecified; G47.10 Hypersomnia, unspecified; Z71.89 Other specified counseling; Z00.00 Encounter for general adult medical examination without abnormal findings

== ENCOUNTER → 2025-10-24 15:02 | Outpatient (BNVA) | payer OTHER, SELFPAY | DX: E11.9 Type 2 diabetes mellitus without complications (principal); R03.0 Elevated blood-pressure reading, without diagnosis of hypertension; E66.9 Obesity, unspecified; K74.60 Unspecified cirrhosis of liver; R00.0 Tachycardia, unspecified; G47.10 Hypersomnia, unspecified; Z68.36 Body mass index [BMI] 36.0-36.9, adult; Z71.89 Other specified counseling | CPT/HCPCS: 83036 ==